=== PATIENT | female | born 1945 | race Caucasian/White ===

== ENCOUNTER → 2021-07-11 | Day surgery (SDC) | payer MEDICARE, OTHER ==
[2021-07-06 11:14] LABS: BASOPHILS # (AUTO) 0.1 (0.0-0.1); BASOPHILS % 1.5 % (0.0-1.0); EOSINOPHILS # (AUTO) 0.4 (0.0-0.4); EOSINOPHILS % 8.1 % (0.0-6.0); HEMATOCRIT 40.4 % (34.2-44.1); HEMOGLOBIN 12.9 g/dL (12.0-16.0); LYMPHOCYTES # (AUTO) 1.6 (1.0-3.2); LYMPHOCYTES % 28.8 % (18.0-39.1); MEAN CORPUSCULAR HEMOGLOBIN 31.3 pg (28-32); MEAN CORPUSCULAR HGB CONC 31.9 g/dL (31-35); MEAN CORPUSCULAR VOLUME 98.1 fL (81-99); MONOCYTES # (AUTO) 0.7 (0.2-0.8); MONOCYTES % 12.8 % (4.4-11.3); NEUTROPHILS # (AUTO) 2.6 (2.1-6.9); NEUTROPHILS % 48.6 % (38.7-80.0); PLATELET COUNT 273 x10e3/uL (140-360); RED BLOOD COUNT 4.12 x10e6/uL (3.6-5.1); RED CELL DISTRIBUTION WIDTH 12.5 % (11.7-14.4)
[2021-07-06 11:48] LABS: ALBUMIN/GLOBULIN RATIO 1.1 (0.8-2.0); ANION GAP 14.5 mmol/L (8-16); CALCIUM 9.7 mg/dL (8.4-10.2); CREATININE, SERUM 0.85 mg/dL (0.57-1.11); POTASSIUM 4.5 mmol/L (3.5-5.1)
[~2021-07-11] VITALS: Ht 162.6 cm; Wt 55.8 kg
[~2021-07-11] MED LIST: BENTYL10 MG PO; CALCIUM 1,0001 EACH PO; CO Q-10100 MG PO; CURAMIN; DEXILANT30 MG PO; FENTANYL CITRATE/PF 100MCG/2 ML INJ ONE; HEPARIN SOD/SOD CHLORIDE 2,000 ML ONE; IOPAMIDOL 370 MG/ML 200 ML INFUS..BTL INJ ONE; L-GLUTAMINE500 MG PO; LIDOCAINE HCL 2% LOCAL 20 ML VIAL ONE; MIDAZOLAM HCL 2 MG/2 ML VIAL ONE; NAC600 MG PO; OMEGA 3 FISH O1 EACH PO; PEPCID20 MG PO; SODIUM CHLORIDE 0.9% 1000ML 1,000 ML ONE; TRAMADOL HCL-A1 EAC1 PO; VERAPAMIL HCL 2.5 MG/ML 2 ML VIAL ONE; Z.0.DICYCLOMINE HCL2 PO; Z.0.OMEPRAZOLE40 MG PO; Z.0.SUCRALFATE1 GM PO; Z.0.XANAX0.5 MG PO; ZOFRAN ODT4 MG PO; [UNRECOGNIZED DRUG - OTHER]; [UNRECOGNIZED DRUG - OTHER] PO; [UNRECOGNIZED DRUG - OTHER] PO
[2021-07-11 12:33] VITALS: BP 133/94
[2021-07-11 13:25] VITALS: BP 113/60
[2021-07-11 13:40] VITALS: BP 117/63
[2021-07-11 13:55] VITALS: BP 107/65
[2021-07-11 14:20] VITALS: BP 118/65
== END | disposition home or self-care (01) ==
LOC: CATH LAB 11:00
PROVIDERS: ATTEND Internal Medicine Interventional Cardiology
DX: I25.118 Atherosclerotic heart disease of native coronary artery with other forms of angina pectoris (principal); R94.39 Abnormal result of other cardiovascular function study; I10 Essential (primary) hypertension; Z88.8 Allergy status to other drugs, medicaments and biological substances; Z88.6 Allergy status to analgesic agent; Z91.040 Latex allergy status; Z01.812 Encounter for preprocedural laboratory examination; Z20.822 Contact with and (suspected) exposure to COVID-19; Z82.49 Family history of ischemic heart disease and other diseases of the circulatory system; Z82.3 Family history of stroke
CPT/HCPCS: 36415; 76937; 80053; 83880; 85025; 93454; C1887; C1894; J2001; J2250; J3010; J7030; Q9967; U0002; 99152